=== PATIENT | female | born 1985 | race Caucasian/White ===

== ENCOUNTER 2017-06-19 04:50 | Emergency (ER) | payer OTHER ==
[2017-06-19 07:13] VITALS: BP 119/60
== END 2017-06-19 07:34 | disposition home or self-care (01) ==
LOC: ED 04:50
DX: J45.909 Unspecified asthma, uncomplicated (principal); Z90.49 Acquired absence of other specified parts of digestive tract
CPT/HCPCS: J7512; J7620; Q0092

== ENCOUNTER 2018-06-20 18:00 | Emergency (ER) | payer OTHER ==
[~2018-06-20] VITALS: Ht 152.4 cm; Wt 91.6 kg
[2018-06-20 18:15] VITALS: Ht 152.4 cm; Wt 91.6 kg
[2018-06-20 19:30] VITALS: BP 102/67
== END 2018-06-20 19:30 | disposition home or self-care (01) ==
LOC: ED 18:00
DX: J45.909 Unspecified asthma, uncomplicated (principal)
CPT/HCPCS: J7620

== ENCOUNTER 2019-03-04 16:18 | Emergency (ER) | payer OTHER ==
[~2019-03-04] VITALS: Ht 154.9 cm; Wt 84.8 kg
[2019-03-04 16:22] VITALS: Ht 154.9 cm; Wt 84.8 kg
[2019-03-04 20:32] LABS: BASOPHIL % 0.2 % (0-2); PLATELET COUNT 144 x10^3mcL (130-400); RED CELL DISTRIBUTION WIDTH 13.2 % (11.5-14.5)
[2019-03-04 20:35] LABS: CALCIUM 8.1 mg/dL (8.5-10.1); CARBON DIOXIDE 29.1 mmol/L (21-32); CHLORIDE SERUM 104 mmol/L (98-107); CREATININE SERUM 0.8 mg/dL (0.6-1.0); GFR1 > 60 mL/min; GLUCOSE SERUM 93 mg/dL (74-106); POTASSIUM SERUM 4.1 mmol/L (3.5-5.1); SODIUM SERUM 142 mmol/L (136-145)
[2019-03-04 20:40] LABS: ALBUMIN 3.4 g/dL (3.4-5.0); ALKALINE PHOSPHATASE 78 U/L (46-116); ALT/SGPT 18 U/L (14-59); AST/SGOT 10 U/L (15-37); BILIRUBIN TOTAL 0.4 mg/dL (0.20-1.00)
[2019-03-04 21:13] LABS: T3 TOTAL 1.2 ng/mL
[2019-03-04 21:15] LABS: FREE T4 1.15 ng/dL (0.76-1.46); FREE THYROXINE INDEX 2.8 ug/dL (1.4-4.5); T4(THYROXINE) 8.9 ug/dL (4.7-13.3)
[2019-03-04 22:34] VITALS: BP 103/61
== END 2019-03-04 22:34 | disposition home or self-care (01) ==
LOC: ED 16:18
PROVIDERS: Emergency Medicine
DX: R11.2 Nausea with vomiting, unspecified (principal); R42 Dizziness and giddiness; H53.8 Other visual disturbances; J45.909 Unspecified asthma, uncomplicated
CPT/HCPCS: 36415; 84439; Q0162